=== PATIENT | female | born 1985 | race Caucasian/White ===

== ENCOUNTER 2022-08-07 02:22 | Emergency (ER) | payer SELFPAY ==
[2022-08-07 03:43] LABS: ACETAMINOPHEN <2.0 ug/mL; BLOOD UREA NITROGEN,BUN 8 mg/dL (7.0-18.0); CARBON DIOXIDE,CO2 23.9 mmol/L (21.0-32.0); CHLORIDE,CL 105 mmol/L (98-107); GLUCOSE RANDOM 112 mg/dL (74-106); POTASSIUM,K 3.8 mmol/L (3.5-5.1); SODIUM,NA 141 mmol/L (136-145)
[2022-08-07 03:50] LABS: ESTIMATED GFR 66 mL/min (>60)
[2022-08-07] MEDS ORDERED: Ibuprofen 600 MG Tab PO ONE (05:14)
== END 2022-08-07 15:13 | disposition home or self-care (01) ==
LOC: MW.ED 02:22
DX: S60.812A Abrasion of left wrist, initial encounter (principal); S60.811A Abrasion of right wrist, initial encounter; Z20.822 Contact with and (suspected) exposure to COVID-19; X78.1XXA Intentional self-harm by knife, initial encounter
CPT/HCPCS: 36415; 80053; 80143; 80179; 80305; 80307; 81001; 84443; 84703; 85025; 87635; 99285; A9270; U0002